=== PATIENT | male | born 1960 | race Caucasian/White ===

== ENCOUNTER 2017-02-01 14:22 | Emergency (ER) | payer OTHER ==
[~2017-02-01] VITALS: Ht 177.8 cm; Wt 117.9 kg
[2017-02-01 14:26] VITALS: BP 144/89
[2017-02-01] MEDS ORDERED: ALBUTEROL/IPRATROPIUM 2.5MG/0.5MG, 3 ML NPPB ONE (15:00)
[2017-02-01] MEDS ORDERED: ALBUTEROL/IPRATROPIUM 2.5MG/0.5MG, 3 ML ONE (15:00)
== END 2017-02-01 15:53 | disposition home or self-care (01) ==
LOC: ED 15:45
DX: J45.31 Mild persistent asthma with (acute) exacerbation (principal); I10 Essential (primary) hypertension
CPT/HCPCS: 71020; 93005; 94640; 99284; J7512; J7620